=== PATIENT | female | born 1970 | race Caucasian/White ===

== ENCOUNTER 2018-07-30 06:07 | Inpatient (IN) | payer OTHER ==
[2018-07-22 17:50] VITALS: BMI 25.4
[2018-07-30] MEDS ORDERED: ROCURONIUM BROMIDE 50 MG/5 ML VIAL ONE (07:13)
[2018-07-30] MEDS ORDERED: PROPOFOL 20 ML ONE (07:13)
[2018-07-30] MEDS ORDERED: fentaNYL CITRATE 250 MCG/5 ML VIAL ONE ×2 (07:13→11:17)
[2018-07-30] MEDS ORDERED: MIDAZOLAM HCL 2 MG/2 ML SINGLE DOSE VIAL ONE ×3 (07:13→13:41)
[2018-07-30] MEDS ORDERED: ONDANSETRON 4 MG/2 ML VIAL ONE (07:15)
[2018-07-30] MEDS ORDERED: ceFAZolin SODIUM 1 GM VIAL ONE (07:15)
[2018-07-30] MEDS ORDERED: LIDOCAINE HCL/PF 2% SDV 5ML VIAL ONE (07:15)
[2018-07-30] MEDS ORDERED: DEXAMETHASONE SOD PHOSPHATE 4 MG/1 ML VIAL ONE (07:15)
[2018-07-30] MEDS ORDERED: THROMBIN (RECOMBINANT) 5,000 UNIT VIAL TP ONE (07:46)
[2018-07-30] MEDS ORDERED: GELATIN, ABSORBABLE 100 EACH SPONGE TP ONE ×2 (07:46→09:13)
[2018-07-30] MEDS ORDERED: DESFLURANE GAS 240 ML BOTTLE IH ONE (08:13)
[2018-07-30] MEDS ORDERED: THROMBIN (BOVINE) 5,000 UNIT VIAL TP ONE (09:12)
[2018-07-30] MEDS ORDERED: BACITRACIN 15 GM TUBE TOPICAL OINTMENT ONE (12:41)
[2018-07-30] MEDS ORDERED: oxyCODONE HCL 5 MG TABLET PO PRN ×2 (12:57)
[2018-07-30] MEDS ORDERED: HYDROmorphone HCL CARPU-JECT 1 MG/1 ML DISP.SYRIN IVPUSH PRN (12:57)
[2018-07-30] MEDS ORDERED: PROMETHAZINE HCL 25 MG/1 ML VIAL IVPUSH PRN (12:57)
[2018-07-30] MEDS ORDERED: ONDANSETRON 4 MG/2 ML VIAL IVPUSH PRN (12:57)
[2018-07-30] MEDS ORDERED: morphine SULFATE 4 MG/ML VIAL IM PRN (13:02)
[2018-07-30] MEDS ORDERED: HYDROmorphone HCL 0.5 MG/0.5 ML SYRINGE ONE (13:24)
[2018-07-30] MEDS: SODIUM CHLORIDE 0.45% 1,000 ML IV SCH (14:35)
--- NOTE | 2018-07-30 15:42 | OP ---
DATE OF OPERATION: 07/30/2018 PREOPERATIVE DIAGNOSES: 1. Chronic left lower extremity lumbar radiculopathy. 2. Lumbar spondylosis with radiculopathy. 3. Spondylolisthesis, lumbar spine. 4. Other intervertebral disk displacement, lumbar spine. 5. Degenerative disk disease, lumbar spine. POSTOPERATIVE DIAGNOSES: 1. Chronic left lower extremity lumbar radiculopathy. 2. Lumbar spondylosis with radiculopathy. 3. Spondylolisthesis, lumbar spine. 4. Other intervertebral disk displacement, lumbar spine. 5. Degenerative disk disease, lumbar spine. PROCEDURE PERFORMED: 1. Transforaminal lumbar interbody fusion from a left-sided approach. 2. Insertion of expandable interbody cage at L5-S1. 3. Application of nonsegmental lumbar spinal instrumentation bilaterally at L5- S1. 4. Local autograft. 5. Formagraft with bone marrow aspirate. SURGEON: Trenton Forrest MD C[employer] D[employer]LLING SUPERVISOR: JANICE Ramos IMPLANTS: [employer] MAS TLIF screws; at L5, two 5.5 x 45 mm Reline screws; at S1 , two 5.5 x 40 mm Reline screws; a TLX 7 x 11 x 26 expandable cage; two 5.5 x 35 mm rods; four set caps. INDICATIONS FOR THE PROCEDURE: The patient is a 48-year-old female with constant and severe radicular left-sided pain as well as severe low back pain. She has been symptomatic for a year and a half. She has been refractory to management with multiple oral medications including narcotic medication, anti-inflammatory medication, muscle relaxants, gabapentin. She has had 3 epidural steroid injections without significant relief. She remains with severe pain affecting her quality of life. She is indicated for surgical treatment. Risks, benefits, and alternatives of the surgery were discussed in detail with the patient and family. Informed consent was obtained. DESCRIPTION OF THE PROCEDURE: The patient was brought in to the operating room via stretcher and general endotracheal anesthesia was administered by the anesthesiologist. The patient's lower extremities were then placed with needles for intraoperative monitoring using the Neurovision system. The patient was then flipped into the prone position onto a padded Giorgio frame. All bony prominences were padded. The back was then prepped and draped in the usual sterile fashion. A fluoroscopic C-arm was used to andrey out the incisions bilaterally. A timeout was performed and prophylactic IV antibiotics were administered. The left parasagittal incision was then made and dissection was carried down to the level of the fascia. The fascia was then split with electrocautery and blunt dissection was carried down between the muscle layers and exposing the L5-S1 facet. A parasagittal incision was then also made on the right side and similar dissection was carried down through the parasagittal tissues into the L5-S1 facet. Jamshidi needles were then used to access the pedicle and K wires were placed, two at L5 and two at S1. On the right side , a 5.5-mm tap was then advanced and stimulated and showed stimulation greater than 20 mA. The 5.5-mm tape was passed to the S1 screw and showed stimulation at greater than 16 mA on the right. The screws were then placed at L5 on the right and at S1 on the right. The 5.5-mm tap was then passed on the left side and stimulation showed stimulation greater than 20 mA at both screws. The retractor blades were assembled and screws with the retractor blades were inserted through the left side. TESARO TLIF retractor was then assembled. The lights were then connected. A subtotal facetectomy of the left L5-S1 facet joint was then performed. The traversing and exiting nerve roots were well identified. An annulotomy was then made using a blunt probe. A 7-mm paddle shaver was then inserted. There was noted to be severe collapse and tightness at this level. It was difficult to even turn the 7-mm paddle shaver. A blunt paddle shaver was then inserted and gently turned under fluoroscopic guidance. I took special care not to violate the endplates. Subsequently, another 7-mm paddle shaver was then inserted and I was able to turn it all the way. An 8-mm paddle shaver was then inserted again, which showed excellent preparation of the endplates. Disc material was excised from this level. The wounds were then copiously irrigated. The cage was then inserted under fluoroscopic guidance and seated into the L5-S1 disk space. There was noted to be severe resistance to malleting the cage and I was not able to get it any further anterior than the cage was placed. The cage was not proud posteriorly. It was countersunl clinically. The cage was then expanded to 9 mm, showing excellent fill and tightness upon expansion. Of note, prior to placing the cage, I did put morcellized local autograft as well as Formagraft with iliac crest aspirate, which was obtained from one of the [employer] cannulas. The cage was also filled with morcellized local autograft and it was also backfilled using the mixer operator vacuum pan salt. The mixer operator vacuum pan salt was then removed and it showed the cage to be at midline on the AP and flush against the posterior edge of the L5 vertebral body on the lateral. The right L5-S1 facet was decorticated and burred out. It was packed with morcellized local autograft and Formagraft with iliac crest aspirate. The retractor was then removed on the left side and the screw heads were engaged. Two 35-mm rods were then placed and secured with screw caps, and final tightened using the torquing device. Fluoroscopic radiographs in both AP and lateral planes showed excellent placement of the hardware and the cage, with excellent expansion of the L5-S1 level. There was no change in the free-running EMGs throughout the case. The wounds were then copiously irrigated. The deep fascia was closed with number 1 Vicryl suture. The deep dermal tissue was approximated with 2-0 Vicryl suture. The skin was closed with a combination of 2-0 nylon suture as well as zhang. Sterile dressings were applied. The patient was then flipped into the supine position, having tolerated the procedure well. Arleen Lane [facility], was necessary throughout the case, who provided assistance in retraction of the neural elements and instrumentation of the spine. This could not have been done without a skilled director surgical. Rebecca [id number] MTDD
[2018-07-30] MEDS ORDERED: AMPHETAMINE PO SCH (16:30)
[2018-07-30] MEDS ORDERED: DEXTROAMPHETAMINE PO SCH (16:30)
[2018-07-30] MEDS ORDERED: [UNRECOGNIZED DRUG - OTHER] PO SCH (16:30)
[2018-07-30] MEDS ORDERED: MIDAZOLAM HCL 2 MG/2 ML SINGLE DOSE VIAL IVPUSH ONE (16:45)
[2018-07-30] MEDS: CEFAZOLIN 1 GM/D5W 1 GRAM/50 ML BAG IVPB SCH (17:08)
[2018-07-30] MEDS: DOCUSATE SODIUM 100 MG CAPSULE (FP) PO SCH (21:28)
[2018-07-30] MEDS ORDERED: HYDROmorphone HCL CARPU-JECT 1 MG/1 ML DISP.SYRIN ONE (22:13)
[2018-07-30] MEDS: HYDROmorphone HCL CARPU-JECT 2 MG/1 ML DISP.SYRIN IVPB PRN (22:19)
[2018-07-31] MEDS: CEFAZOLIN 1 GM/D5W 1 GRAM/50 ML BAG IVPB SCH (01:03)
[2018-07-31] MEDS: HYDROmorphone HCL CARPU-JECT 2 MG/1 ML DISP.SYRIN IVPB SCH ×3 (02:17→05:15)
[2018-07-31] MEDS ORDERED: HYDROmorphone HCL CARPU-JECT 2 MG/1 ML DISP.SYRIN IVPB ONE (04:45)
[2018-07-31] MEDS ORDERED: AMPHETAMINE PO SCH (07:00)
[2018-07-31] MEDS ORDERED: [UNRECOGNIZED DRUG - OTHER] PO SCH (07:00)
[2018-07-31] MEDS ORDERED: DEXTROAMPHETAMINE PO SCH (07:00)
[2018-07-31] MEDS ORDERED: ACETAMINOPHEN 1000 MG/100 ML VIAL (NON FORMULARY) IVPB PRN (09:09)
[2018-07-31] MEDS ORDERED: ACETAMINOPHEN 500 MG TABLET (FP) PO PRN (09:11)
[2018-07-31] MEDS: SERTRALINE HCL 50 MG TABLET (FP) PO SCH (09:14)
[2018-07-31] MEDS: DOCUSATE SODIUM 100 MG CAPSULE (FP) PO SCH ×2 (09:14→21:52)
--- NOTE | 2018-07-31 11:14 | PN ---
Progress Note (short form) - Note Progress Note: Anesthesiology Post-op 48 y.o. woman POD#1 s/p TLIF under GA. Pt is doing well but does c/o some pain. She states that she doesn't feel thet the Percocet helps; she would prefer ibuprofen/acetaminophen. Otherwise, no other anesthesia-related issues. VSS. 48 y.o. woman with stable post-operative course. I have d/c/'d Percocet and instead ordered acetaminophen as well as ibuprofen PO. She also has oxycodone ordered as needed.
--- NOTE | 2018-07-31 11:42 | PN ---
Progress Note (short form) - Note Progress Note: C/o back spasms and pain overnight, able to walk, denies raadicular pain AVSS Dressing c/d/i NVID Motor full POD#1 -oob/pt -pain control -valium for spasms
[2018-07-31] MEDS: IBUPROFEN 600 MG TABLET (FP) PO PRN (12:41)
[2018-07-31] MEDS: diazePAM 5 MG TABLET PO PRN (12:42)
[2018-07-31] MEDS: HYDROmorphone HCL CARPU-JECT 2 MG/1 ML DISP.SYRIN IVPB PRN (14:58)
[2018-08-01] MEDS: HYDROmorphone HCL CARPU-JECT 2 MG/1 ML DISP.SYRIN IVPB PRN ×2 (05:23→17:14)
[2018-08-01] MEDS: DOCUSATE SODIUM 100 MG CAPSULE (FP) PO SCH ×2 (10:34→22:26)
[2018-08-01] MEDS: SERTRALINE HCL 50 MG TABLET (FP) PO SCH (10:35)
[2018-08-01] MEDS: diazePAM 5 MG TABLET PO PRN ×2 (12:11→20:15)
--- NOTE | 2018-08-01 16:53 | PN ---
Progress Note (short form) - Note Progress Note: 48 yo female s/p TLIF on 07/30. Patient is lying in bed crying due to severe pain to low back. Denies any radiating pain down her legs. She states pain was bearable this morning during her PT session but worsened around 10:30am this morning. Last Vital Signs Temp Pulse Resp BP Pulse Ox 98.9 F 90 18 96/64 93 L 08/01/18 14:13 08/01/18 14:13 08/01/18 14:13 08/01/18 14:13 08/01/18 08:49 PE: Lumbar Spine Dressing is clean, dry and intact Neurovascularly intact Cap refill intact A: POD #2 s/p TLIF on 07/30 P: -Pain control -Continue PT -DVT prophylaxis -To discharge tomorrow
[2018-08-01] MEDS ORDERED: ACETAMINOPHEN 1000 MG/100 ML VIAL (NON FORMULARY) IVPB ONE (18:30)
[2018-08-01] MEDS: SODIUM CHLORIDE 0.45% 1,000 ML IV SCH (18:53)
[2018-08-01] MEDS: IBUPROFEN 600 MG TABLET (FP) PO PRN (20:14)
[2018-08-02] MEDS: IBUPROFEN 600 MG TABLET (FP) PO PRN ×2 (04:00→09:37)
[2018-08-02] MEDS: diazePAM 5 MG TABLET PO PRN (04:00)
[2018-08-02 06:34] VITALS: BP 92/64; PULSE 78; TEMP 98
--- NOTE | 2018-08-02 08:53 | PN ---
Progress Note (short form) - Note Progress Note: doing much better wound c/d/i nvid d/c home, f/u next week for wound check. f/u thgis
[2018-08-02] MEDS: SERTRALINE HCL 50 MG TABLET (FP) PO SCH (09:37)
[2018-08-02] MEDS: DOCUSATE SODIUM 100 MG CAPSULE (FP) PO SCH (09:38)
== END 2018-08-02 11:00 | disposition home or self-care (01) | DRG 455 ==
LOC: FM/S 06:07
PROVIDERS: ADMIT Orthopaedic Surgery Orthopaedic Surgery of the Spine; ATTEND Orthopaedic Surgery Orthopaedic Surgery of the Spine
PROC: 0SG30AJ Fusion of Lumbosacral Joint with Interbody Fusion Device, Posterior Approach, Anterior Column, Open Approach (ICD-10-PCS; 2018-07-30)
PROC: 0SG30A0 Fusion of Lumbosacral Joint with Interbody Fusion Device, Anterior Approach, Anterior Column, Open Approach (ICD-10-PCS; 2018-07-30)
PROC: 0SB40ZZ Excision of Lumbosacral Disc, Open Approach (ICD-10-PCS; 2018-07-30)
PROC: 01NB0ZZ Release Lumbar Nerve, Open Approach (ICD-10-PCS; 2018-07-30)
PROC: 07DR3ZZ Extraction of Iliac Bone Marrow, Percutaneous Approach (ICD-10-PCS; 2018-07-30)
PROC: 4A1134G Monitoring of Peripheral Nervous Electrical Activity, Intraoperative, Percutaneous Approach (ICD-10-PCS; 2018-07-30)
PROC: B01BZZZ Fluoroscopy of Spinal Cord (ICD-10-PCS; 2018-07-30)
PROC: 0SG3071 Fusion of Lumbosacral Joint with Autologous Tissue Substitute, Posterior Approach, Posterior Column, Open Approach (ICD-10-PCS; principal; 2018-07-30 08:34)
DX: M47.896 Other spondylosis, lumbar region (principal); M43.16 Spondylolisthesis, lumbar region; M51.16 Intervertebral disc disorders with radiculopathy, lumbar region
CPT/HCPCS: 72100-TC-FY; 81025; 94760; 97116-GP; 97162-GP; J0131